=== PATIENT | male | born 1945 | race Caucasian/White ===

== ENCOUNTER → 2019-07-28 10:35 | Outpatient (CLI) | payer MEDICARE, OTHER, MEDICAID, SELFPAY ==
--- NOTE | 2019-07-28 10:47 | XR_ITS ---
PROCEDURE: XR CHEST 2V CLINICAL HISTORY: DYSPNEA ON EXERTION COMPARISON: [id number] XR chest portable from 08/06/2018 FINDINGS: The cardiomediastinal silhouette and pulmonary vascularity are within normal limits. The lungs are clear without infiltrates, suspicious nodules, or pleural effusions. No acute bony abnormalities. IMPRESSION: No acute findings. Dictated by: Tony Li MD 07/28/2019 14:33 Electronically signed by Tony Li MD in [place] 07/28/2019 14:33
[2019-07-28 12:09] LABS: Basophils % 0.8 % (0.1-2.0); Eosinophils # 0.1 K/mm3 (0.0-0.4); Eosinophils % 1.8 % (0.1-12.0); Hematocrit 48.9 % (42.0-52.0); Hemoglobin 16.1 g/dL (14.1-18.0); Lymphocytes # 1.7 K/mm3 (0.7-4.5); Lymphocytes % 30.6 % (10-50); Mean Corpuscular HGB Conc 32.9 g/dL (31.8-35.4); Mean Corpuscular Hemoglobin 31.3 pg (27.0-31.2); Mean Corpuscular Volume 95.2 fl (80-94); Mean Platelet Volume 7.7 fl (7.4-10.4); Monocytes # 0.3 K/mm3 (0.1-1.0); Monocytes % 5.7 % (1.7-9.3); Neutrophils # 3.3 K/mm3 (1.8-7.8); Neutrophils % 61.1 % (37.0-80.0); Platelet Count 226 K/mm3 (142-424); Red Blood Count 5.14 M/mm3 (4.60-6.20); Red Cell Distribution Width 12.5 % (11.5-17.5); White Blood Count 5.4 K/mm3 (4.8-10.8)
[2019-07-28 13:24] LABS: Alanine Aminotransferase 46 U/L (12-78); Albumin Level 4.1 gm/dL (3.4-5.0); Albumin/Globulin Ratio 1.3 (1.1-1.8); Alkaline Phosphatase 79 U/L (46-116); Aspartate Amino Transferase 22 U/L (15-37); Blood Urea Nitrogen 16 mg/dL (7-18); Calcium 9.3 mg/dL (8.5-10.1); Carbon Dioxide 28 mmol/L (21.0-32.0); Chloride 103 mmol/L (98-107); Creatinine,Serum 1.15 mg/dL (0.70-1.30); Estimated Glomerular Filt Rate 63 ml/min (>60); GFR (African American) 76 ML/MIN (>60); Globulin 3.2 gm/dl (1.3-3.2); Glucose 159 mg/dL (74-106); Sodium 137 mmol/L (136-145); Total Protein,Serum 7.3 gm/dL (6.4-8.2)
== END ==
PROVIDERS: PCP Internal Medicine Adolescent Medicine; Visit Provider Internal Medicine Adolescent Medicine
DX: R06.09 Other forms of dyspnea (principal); I51.7 Cardiomegaly
CPT/HCPCS: 36415; 71046; 80053; 83880; 85025; 93306

== ENCOUNTER → 2019-10-02 08:30 | Outpatient (CLI) | payer MEDICARE, OTHER, MEDICAID, SELFPAY ==
--- NOTE | 2019-10-02 08:36 | CA_ITS ---
APPROVED REPORT [employer]: CT Laterality: Bilateral Study Quality: Adequate Risk Factors Hypertension: TIA/CVA History Hyperlipidemia Stroke Doppler Spectral Velocity Analysis ECA (R) 121.70/121.70 cm/s ECA (L) 191.30/59.80 cm/s dICA (L) 81.30/41.70 cm/s Bill (L) 119.80/61.00 cm/s pICA (L) 286.60/87.70 cm/s dCCA (L) 68.40/23.50 cm/s pCCA (L) 67.40/20.90 cm/s Vert (L) 64.70/24.60 cm/s ICA/CCA 4.19 Conclusion Duplex evaluation demonstrates occlusion for the right proximal internal carotid artery, common carotid, and vertebral. Duplex evaluation demonstrates stenosis of the left proximal internal carotid artery in the range of 70-99%. Consider CTA for confirmation Electronically signed by : Tony Li MD 10/02/2019 15:53:18
== END ==
PROVIDERS: PCP Nurse Practitioner Family; Visit Provider Nurse Practitioner Family
DX: I65.23 Occlusion and stenosis of bilateral carotid arteries (principal)
CPT/HCPCS: 93880

== ENCOUNTER 2020-02-17 09:00 | Emergency (ER) | payer MEDICARE, OTHER, MEDICAID, SELFPAY ==
[2020-02-17 09:05] VITALS: BP 98/69; PULSE 122; RESP 18; TEMP 37.1; O2SAT 98; BMI 30.4
[2020-02-17 09:17] LABS: Microscopic, Urine URINE MICROSCOPIC (MICROSCOPIC)
[2020-02-17 09:19] LABS: Appearance,Urine CLOUDY (Clear); Blood, Urine 3+ (Negative); Color,Urine RED (Yellow); Glucose,Urine (UA) Negative (Negative); Ketones,Urine TRACE (Negative); Leukocyte Esterase,Urine 2+ (Negative); Nitrate,Urine POSITIVE (Negative); PH,Urine 7.5 (5.0-8.5); Protein,Urine 3+ (Negative); Specific Gravity, Urine 1.025 (1.005-1.030)
--- NOTE | 2020-02-17 09:23 | HMH.EDGENADL ---
ED Disposition Clinical Impression: Cystitis, Bladder calculi Hematuria Qualifiers: Hematuria type: unspecified type Qualified Code(s): R31.9 - Hematuria, unspecified Disposition: Home, Self-Care Condition on Discharge: Good Instructions: DI for Urinary Tract Infection (UTI) Additional Instructions: Omnicef as prescribed. Additional instructions for URINARY TRACT INFECTION: See your physician in 2-3 days for follow up and culture results. Return immediately if you have an uncontrollable fever greater than 102 degrees, severe back or abdominal pain, inability to urinate, or repetitive vomiting. Prescriptions: Cefdinir [Omnicef 300mg Capsule] 300 mg PO BID #20 cap Transmission Status: Received by [facility] Referrals: Alexandria Huerta [Primary Care Provider] - - Critical Care Critical Care Time: No Attestation: On 02/17/20, the high probability of a clinically significant, sudden or life threatening deterioration of the following system(s) required my full and direct attention, intervention and personal management. The time I documented below is in addition to time spent performing reported procedures but includes the following listed in this critical care notation. Medical Decision Making - Medical Records Medical records reviewed: Yes: I reviewed the patient's medical records. - Luis Inquiry Pt receiving controlled substance: No Vital Signs: 02/17/20 09:05 02/17/20 09:47 02/17/20 11:15 Temperature 98.8 F Temperature Source Oral Pulse Rate [Left Radial] 122 H 112 H 97 H Respiratory Rate 18 18 Blood Pressure [Right Arm] 98/69 L 121/72 119/79 Blood Pressure Mean [Right Arm] 78 88 92 Blood Pressure Source [Right Arm] Automatic Cuff Automatic Cuff Automatic Cuff Blood Pressure Position [Right Arm] Sitting Sitting Sitting 02 Sat by Pulse Oximetry 98 96 98 Oxygen Delivery Method Room Air Room Air Room Air - Lab Data Lab results reviewed: Yes: I reviewed the patient's lab results. Lab Results 02/17/20 09:10: Urine Color Red, Urine Appearance Cloudy, Urine pH 7.5, Ur Specific Berger 1.025, Urine Protein 3+, Urine Glucose (UA) Negative, Urine Ketones Trace, Urine Blood 3+, Urine Nitrate Positive, Urine Bilirubin Negative, Urine Urobilinogen 4.0, Ur Leukocyte Esterase 2+ A, Urine RBC Tntc, Urine WBC 20-50, Ur Squamous Epith Cells 10-20, Amorphous Sediment 1+, Urine Bacteria 3+ 02/17/20 09:40: WBC 16.6 H, RBC 4.63, Hgb 14.9, Hct 42.1, MCV 91.0, MCH 32.2 H, MCHC 35.3, RDW 13.1, Plt Count 209, MPV 7.2 L, Neut % (Auto) 86.7 H, Lymph % (Auto) 7.0 L, Bacon % (Auto) 3.9, Eos % (Auto) 1.2, Baso % (Auto) 1.2, Neut # (Auto) 14.4 H, Lymph # (Auto) 1.2, Bacon # (Auto) 0.7, Eos # (Auto) 0.2, Baso # (Auto) 0.2, Total Counted 100, Neutrophils % (Manual) 80 H, Band Neutrophils % 3.0, Lymphocytes % (Manual) 8 L, Monocytes % (Manual) 5, Metamyelocytes % 4.0 H, Platelet Estimate Normal, RBC Morphology Normal 02/17/20 09:40: Sodium 134 L, Potassium 4.3, Chloride 101, Carbon Dioxide 25, Anion Gap 12.3, BUN 19, Creatinine 1.00, Estimated Creat Clear 84, Estimated GFR 73, Est GFR ( Amer) 89, Glucose 198 H, Calcium 9.0 02/17/20 09:45: Lactate 1.6 Result diagrams: 02/17/20 09:40 02/17/20 09:40 Orders (Tests/Meds): ED MEDICATIONS Generic Name Dose Route Start Last Admin Trade Name Freq PRN Reason Stop Dose Admin Ceftriaxone Sodium 1 gm/ 50 mls @ 100 mls/hr 02/17/20 09:45 02/17/20 11:11 Sodium Chloride IV 03/02/20 09:44 100 mls/hr Q24H REJI Administration Protocol Discontinued Medications Generic Name Dose Route Start Last Admin Trade Name Freq PRN Reason Stop Dose Admin Sodium Chloride 1,000 ml 02/17/20 09:51 02/17/20 11:11 Sod Chlor 0.9% 1000ml Bag IV 02/17/20 09:52 1,000 ml BOLUS ONE Administration ORDERS Category Date Time Status Blood Culture Stat Micro 02/17/20 09:48 Received Urine Culture Stat Micro 02/17/20 09:10 Received - CT Data CT Scan: Ab
[2020-02-17 09:31] LABS: Bilirubin,Urine Negative (Negative)
[2020-02-17 09:32] LABS: Amorphous Sediment,Urine 1+ /lpf; Bacteria,Urine 3+ /lpf; RBC,Urine TNTC #/hpf (0-3); WBC,Urine 20-50 #/hpf (0-3)
--- NOTE | 2020-02-17 09:37 | CT_ITS ---
Procedure: CT ABDOMEN PELVIS WO CON Patient Age:74Y CLINICAL INDICATION: hematuria 74-year-old COMPARISON: ABDPELW/O CT ABD PELVIS W/O CONTRAST from 05/04/2014 TECHNIQUE: Axial images obtained with sagittal and coronal reformats. All CT scans at the facility use one or more dose reduction, viz: automated exposure control, ma/kV adjustment per patient size (including targeted exams where dose is matched to indication, i.e. head), or iterative reconstruction technique. FINDINGS: Lower thorax: No acute finding. Small minor area of focal density towards left base most compatible with scarring. Axial image 5-unchanged since prior study. Heart normal size. Upper normal wall thickness distal esophagus ABDOMEN: Lack of oral and IV contrast can decrease sensitivity Liver: No masses or biliary dilatation.. Mild, subtle diffuse fatty change suggested. Portal vein appears upper normal size Gallbladder: Unremarkable nondistended. No radio opaque stones. Pancreas: But unremarkable no masses or peripancreatic fluid collections. Spleen: Upper normal with a few granulomatous calcifications le Adrenals: No significant findings. Slight fullness left adrenal stable unchanged since 2013. tract ---- The kidneys/ureters satisfactory. No hydronephrosis. No discrete renal calculi. Note slightly hyperdense tip renal pyramids bilaterally reflecting tendency to form stones but these most evident towards upper pole bilaterally with a could reflect a developing tiny less than 1 mm stone.. (However would note small 3 mm calculus left kidney previously 2014 CT left, is no longer evident and has passed in the interval).. Mild chronic stranding about both kidneys. Stable cyst 10 mm size left kidney and likely smaller cyst upper pole left kidney PELVIS:. Diffuse wall thickening with diffuse fat stranding and hazy appearance surrounding the urinary bladder. These findings are most compatible with a cystitis. Of there is a small nearly 4 mm bladder calculus along posterior right aspect of the urinary bladder. A smaller 2.6 mm calculus at the posterior left aspect of urinary bladder also noted., axial image 99,. Prostate enlarged was stippled central calcification of prostate measures of a 54 mm transverse dimension. No significant free fluid the pelvis and seminal vesicles unremarkable . GI tract------ no bowel dilatation or obstruction Appendix is normal.. Terminal ileum appears satisfactory Generous stool at upper rectum and distal sigmoid otherwise minimal stool throughout the remainder of colon. Areas of upper normal wall thickness rectum most variable areas of distension. Small-bowel overall satisfactory.. The upper normal wall thickness stomach, reflects lack of distension Slight hazy appearance to the mesentery-unchanged since previous study. Note few small mesenteric lymph nodes a similar to previous study. ...... Peritoneum: No abnormal fluid collections.. No free air. Small fat containing umbilical hernia-stable Lymph nodes: No significantly enlarged lymph nodes apparent. A few scattered mesenteric lymph nodes Vasculature: Diffuse moderate calcification abdominal aorta. No aneurysm. No retroperitoneal findings. Bones: No lesions or the acute fracture. Degenerative facet changes lower L-spine IMPRESSION: 1. Findings compatible with significant acute cystitis. .Diffuse bladder wall thickening with stranding fat about this inflamed appearing urinary bladder wall. .Two small bladder calculi noted (4 mm posterior right and 2.5 mm posterior left bladder) 2. Enlarged prostate 3.No hydronephrosis. Ureters unremarkable . Dictated by: Fausto Salgado MD
[2020-02-17 09:45] LABS: Basophils # 0.2 K/mm3 (0-0.2); Basophils % 1.2 % (0.1-2.0); Eosinophils # 0.2 K/mm3 (0.0-0.4); Eosinophils % 1.2 % (0.1-12.0); Hematocrit 42.1 % (42.0-52.0); Hemoglobin 14.9 g/dL (14.1-18.0); Lymphocytes # 1.2 K/mm3 (0.7-4.5); Mean Corpuscular HGB Conc 35.3 g/dL (31.8-35.4); Mean Corpuscular Hemoglobin 32.2 pg (27.0-31.2); Mean Platelet Volume 7.2 fl (7.4-10.4); Monocytes # 0.7 K/mm3 (0.1-1.0); Monocytes % 3.9 % (1.7-9.3); Neutrophils # 14.4 K/mm3 (1.8-7.8); Neutrophils % 86.7 % (37.0-80.0); Platelet Count 209 K/mm3 (142-424); Red Blood Count 4.63 M/mm3 (4.60-6.20); Red Cell Distribution Width 13.1 % (11.5-17.5); White Blood Count 16.6 K/mm3 (4.8-10.8)
[2020-02-17 09:47] VITALS: BP 121/72; PULSE 112; O2SAT 96
--- NOTE | 2020-02-17 09:47 | PC.NURSE ---
Pt to rad.
[2020-02-17 09:49] LABS: MANUAL DIFFERENTIAL MANUAL DIFFERENTIAL (MANUAL DIFF)
[2020-02-17 09:51] LABS: Anion Gap 12.3 mEq/L (5-15); Blood Urea Nitrogen 19 mg/dl (9-20); Carbon Dioxide 25 mmol/L (22.0-30.0); Chloride 101 mmol/L (98-107); Creatinine Clearance Estimated 84 mL/min (50-200); Estimated Glomerular Filt Rate 73 ml/min (>60); GFR (African American) 89 ML/MIN (>60); Glucose 198 mg/dl (74-100); Potassium 4.3 mmoL/L (3.5-5.1); Sodium 134 mmol/L (136-145)
[2020-02-17 10:01] LABS: Lactic Acid 1.6 mmol/L (0.7-2.1)
[2020-02-17 10:05] LABS: Lymphocytes % 8 % (10-50); Monocytes % 5 % (2-9); Neutrophils % 80 % (42-76); Platelet Estimate Normal; RBC Morphology Normal; Total Cells Counted 100
[2020-02-17 11:15] VITALS: BP 119/79; PULSE 97; RESP 18; O2SAT 98
--- NOTE | 2020-02-17 11:21 | ECG_ITS ---
APPROVED REPORT Exam: Resting ECG HR:89 bpm ECG Measurements Heart Rate 89 AXES WA 128 P 42 QRSd 74 QRS 32 QT 366 T -21 QTc 445 <Conclusion> Normal sinus rhythm NDST-T Changes Abnormal ECG Electronically signed by : Richard Monroy, 02/20/2020 08:48:50
--- NOTE | 2020-02-17 12:03 | PC.NURSE ---
notified ER MD of pt bp prior to d/c pt reports he has not taken his bp medication today, ER MD states pt should hold bp medication today pt and verbalize understanding
[2020-02-17 12:04] VITALS: BP 103/71; PULSE 95; RESP 18; TEMP 37.2; O2SAT 98
== END 2020-02-17 12:06 | disposition home or self-care (01) ==
PROVIDERS: Emergency Provider Emergency Medicine; PCP Nurse Practitioner Family
DX: N30.01 Acute cystitis with hematuria (principal); N21.0 Calculus in bladder; N40.0 Benign prostatic hyperplasia without lower urinary tract symptoms; Z87.442 Personal history of urinary calculi; E11.65 Type 2 diabetes mellitus with hyperglycemia; Z79.84 Long term (current) use of oral hypoglycemic drugs; I10 Essential (primary) hypertension
CPT/HCPCS: 74176; 80048; 81001; 83605; 85007; 85025; 87040; 87086; 87088; 87186; 93005; 96365; 96375; 99284

== ENCOUNTER 2020-08-02 09:45 | Emergency (ER) | payer MEDICARE, OTHER, MEDICAID, SELFPAY ==
[2020-08-02 09:54] VITALS: BP 137/88; PULSE 99; RESP 18; TEMP 36.6; O2SAT 98; BMI 25.8
[2020-08-02 10:31] VITALS: BP 137/88; PULSE 99; RESP 18; TEMP 36.7; O2SAT 98; BMI 25.7
--- NOTE | 2020-08-02 11:33 | HMH.EDUTC ---
[facility] [place] Clinical Impression: Current use of anticoagulant therapy Laceration of left index finger Qualifiers: Encounter type: initial encounter Damage to nail status: without damage Foreign body presence: without foreign body Qualified Code(s): S61.211A - Laceration without foreign body of left index finger without damage to nail, initial encounter Disposition: Home, Self-Care Condition on Discharge: Good Instructions: How to Care for a Laceration After Repair, DI for Laceration Repair -- Simple Additional Instructions: If you start back bleeding, please hold pressure and elevate the hand. If you are unable to get it to stop, please return inderjit. Follow up in 10 days to have the sutures removed. Take the antibiotics (keflex) as directed. Keep a dressing on the wound if you are going to be getting it dirty. Follow up with your primary care physician. GO TO THE ER FOR ANY WORSENING SYMPTOMS OR CONCERNS Prescriptions: cephALEXin [Keflex 500mg Cap] 500 mg PO Q6H 10 Days #40 cap Transmission Status: Received by [facility] Referrals: Alexandria Huerta [Primary Care Provider] - Time of Disposition: 11:38 Medical Decision Making - Medical Records Medical records reviewed: No: I reviewed the patient's medical records. - Luis Inquiry Pt receiving controlled substance: No Vital Signs: 08/02/20 09:54 08/02/20 10:31 08/02/20 11:56 Temperature 98 F 98.0 F 98.0 F Temperature Source Oral Oral Pulse Rate 99 H Pulse Rate [Radial] 99 H 99 H Respiratory Rate 18 18 18 Blood Pressure 137/88 Blood Pressure [Right Arm] 137/88 137/88 Blood Pressure Mean [Right Arm] 104 104 Blood Pressure Source [Right Arm] Automatic Cuff Blood Pressure Position [Right Arm] Sitting Sitting 02 Sat by Pulse Oximetry 98 98 Oxygen Delivery Method Room Air Room Air Orders (Tests/Meds): ED MEDICATIONS Discontinued Medications Generic Name Dose Route Start Last Admin Trade Name Freq PRN Reason Stop Dose Admin Tetanus/Reduced Diphtheria/Acell Pertussis 0.5 ml 08/02/20 11:15 08/02/20 10:45 Tet/Diphth/Pert-Adult 0.5ml Syringe IM 08/02/20 11:16 0.5 ml .ONCE ONE Administration [facility] [place] H[place] - General Stated complaint: finer lac, on blood thinner Time Seen by Provider: 08/02/20 10:00 Mode of Arrival: Ambulatory Source of Information: Patient Limitations: No Limitations Description of Symptoms (Recalled from Triage Doc. by RN): PATIENT C/O LACERATION TO LEFT INDEX FINGER AFTER CUTTING IT ON A PIECE OF METAL WHILE CLEANING HIS YARD. PATIENT IS ON PLAVIX. NOT UP TO DATE ON TETANUS VACCINE HEENT Symptoms (Recalled from RN notes): No Resp Symptoms (Recalled from RN notes): No Skin Symptoms (Recalled from RN notes): No MS Symptoms (Recalled from RN notes): No Functional Status (Recalled from RN notes): WNL - History of Present Illness Provider Complaint: He states that this morning he was cleaning up around his barn when he got cut by a piece of metal off a hay bailer. His laceration is no his left index finger. He is on plavix and aspirin 81 mg daily because he has carotid stenosis. He had a stroke approx 1 month ago from the stenosis. He has been unable to get the laceration to stop bleeding. - Related Data Home Medications Medication Instructions Recorded Confirmed Atorvastatin Calcium [Atorvastatin 80 mg PO DAILY 08/06/18 08/06/18 80mg Tab] Glimepiride [Amaryl 2mg tablet] 2 mg PO DAILY 08/06/18 08/06/18 Metformin HCl [Metformin 1000mg 1,000 mg PO BID 08/06/18 08/06/18 Tablets] lisinopriL [Prinivil 5mg Tablet] 5 mg PO DAILY 08/06/18 08/06/18 Previous Rx's Medication Instructions Recorded Cefdinir [Omnicef 300mg Capsule] 300 mg PO BID #20 cap 02/17/20 cephALEXin [Keflex 500mg Cap] 500 mg PO Q6H 10 Days #40 cap 08/02/20 Allergies Allergy/AdvReac Type Severity Reaction Status Date / Time No Known Allergies Allergy Verified 08/06/18 19:15 - Wor
[2020-08-02 11:56] VITALS: BP 137/88; PULSE 99; RESP 18; TEMP 36.7; O2SAT 98
== END 2020-08-02 11:59 | disposition home or self-care (01) ==
PROVIDERS: Emergency Provider Nurse Practitioner Family; PCP Nurse Practitioner Family
DX: S61.211A Laceration without foreign body of left index finger without damage to nail, initial encounter (principal); Z79.01 Long term (current) use of anticoagulants; Z23 Encounter for immunization; E11.9 Type 2 diabetes mellitus without complications; Z86.73 Personal history of transient ischemic attack (TIA), and cerebral infarction without residual deficits; Z79.84 Long term (current) use of oral hypoglycemic drugs; Z79.899 Other long term (current) drug therapy; Y93.H9 Activity, other involving exterior property and land maintenance, building and construction; Y92.71 Barn as the place of occurrence of the external cause
CPT/HCPCS: 12001; 90471; 90715; 99201

== ENCOUNTER 2024-12-28 14:32 | Outpatient (CLI) | payer MEDICARE, OTHER, MEDICAID, SELFPAY ==
--- NOTE | 2024-12-28 | CA_ITS ---
APPROVED REPORT EXAM: Comprehensive 2D, Doppler, and color-flow Echocardiogram Automation Application Engineer: Holli Garcia CRT Ht: 5 ft 8 in Wt: 208lbs BSA: 2.08 BP: 128/84 mmHg Indications: Shortness of Breath, CVA/TIA, Diabetes, Peripheral Edema, Hyperlipidemia, Hypertension/HDD 2D Dimensions LA Volume 40.30 mL LA Volume Index 18.90 mL/m2 (M/F) 16-34 M-Mode Dimensions RVDd 3.06 cm (0.9-2.6) LA Diam 3.10 cm (1.9-4.0) LVDd 3.89 cm (3.5-5.7) LVDs 2.42 cm (3.5-5.7) IVSd 1.63 cm (0.6-1.1) PWd 0.79 cm (0.6-1.1) EF (Teich) 68.50% FS 37.80% EDV (Teich) 65.50 mL ESV (Teich) 20.60 mL LV Diastology E Decel Time 210 (160-240 msec) E/A Ratio 0.71 MED A' 9.70 cm/s LAT A' 14.20 cm/s Aortic Valve AI PHT 539.00 ms AO Peak GR. 5.10 mmHg Mitral Valve MV E Max Shyam. 136.0 (40-130 cm/s) MV A Velocity 190.0 (40-130 cm/s) E/A Ratio 0.71 MV PHT 62.0 ms Pulmonary Valve PV Peak Velocity 161.0 (50-150 cm/s) Tricuspid Valve TR P. Velocity 347.00 cm/s RAP Estimate 10.00 mmHg RVSP 58.10 mmHg Left Ventricle The left ventricle is normal size. The left ventricular systolic function is normal. The left ventricular ejection fraction is within the normal range. There is increased LV wall thickness. There is normal LV segmental wall motion. Transmitral Doppler flow pattern suggests impaired LV relaxation. LVEF is 55%. Right Ventricle The right ventricle is normal size. The right ventricular systolic function is normal. Atria The left atrium size is normal. The right atrium size is normal. There is no Doppler evidence of interatrial shunt. Aortic Valve The aortic valve is mildly thickened. There is no aortic valvular stenosis. Mild aortic regurgitation is present. Mitral Valve The mitral valve is normal in structure. No evidence of mitral valve stenosis. Mild mitral regurgitation. Tricuspid Valve Tricuspid valve is grossly normal in structure and function. Trace tricuspid regurgitation. There is insufficient TR jet to estimate RVSP. Pulmonic Valve The pulmonary valve is normal in structure. Trace pulmonic regurgitation. Great Vessels The aortic root is normal in size. IVC is normal in size and collapses >50% with inspiration. Pericardium There is no pericardial effusion. Other Information Study Quality: Fair Conclusion Normal biventricular systolic function. Mild MR, mild TR. Electronically signed by : Ml Saez MD 01/07/2025 14:46:16
== END 2024-12-28 23:59 | disposition home or self-care (01) ==
LOC: RT 14:34
PROVIDERS: PCP Nurse Practitioner Family; Visit Provider Nurse Practitioner Family
DX: I34.0 Nonrheumatic mitral (valve) insufficiency (principal); I36.1 Nonrheumatic tricuspid (valve) insufficiency; I10 Essential (primary) hypertension
CPT/HCPCS: 93306